=== PATIENT | female | born 1995 | race African-American/Black ===

== ENCOUNTER 2020-03-15 19:50 | Observation (INO) | payer SELFPAY ==
[2020-03-15] MEDS ORDERED: LACTATED RINGER'S 1,000 ML IV ONE (20:52)
[2020-03-15] MEDS ORDERED: NIFEdipine 10 MG CAP PO ONE (21:00)
[2020-03-15] MEDS ORDERED: TERBUTALINE SULFATE 1 MG/ML 1ML VIAL SC ONE (21:30)
== END 2020-03-15 23:43 | disposition home or self-care (01) | DRG 833 ==
LOC: LDRP 19:50
PROVIDERS: ADMIT Specialist; ATTEND Specialist
DX: O47.03 False labor before 37 completed weeks of gestation, third trimester (principal); O30.003 Twin pregnancy, unspecified number of placenta and unspecified number of amniotic sacs, third trimester; Z3A.36 36 weeks gestation of pregnancy
CPT/HCPCS: 59025; 76805; 81002; 96360; 96372; G0378; J3105